=== PATIENT | female | born 1955 | race Caucasian/White ===

== ENCOUNTER 2020-06-29 11:37 | Outpatient (REF) | payer OTHER, SELFPAY ==
--- NOTE | ~2020-06-29 | MM_ITS ---
EXAMINATION: MM SCREENING DIGITAL BREAST TOMOSYNTHESIS, BILATERAL CLINICAL INFORMATION: Screening. Asymptomatic. The lifetime risk of breast cancer based on the Tyrer-Cuzick Model is 10%. COMPARISON: Mammography: 06/04/2019, 05/02/2018 TECHNIQUE: Digital breast tomosynthesis is performed in both the craniocaudal and mediolateral oblique views along with computer-aided detection (CAD). Synthesized 2D images are generated from the tomosynthesis. FINDINGS: There are scattered areas of fibroglandular density (ACR BI-RADS breast composition Category b). There are no significant masses, abnormal calcifications, or other abnormalities. Parenchymal pattern is similar to prior studies. The axilla and skin contours are unremarkable. MM/MM tomosynthesis screening BI IMPRESSION: No mammographic evidence of malignancy. ASSESSMENT: BI-RADS 1: Negative RECOMMENDATION: Routine annual mammography screening. This patient's information was entered into a reminder system with a target due date for their next mammogram.
== END 2020-06-29 11:38 | disposition home or self-care (01) ==
LOC: HO.MAMMO 11:37
PROVIDERS: PCP Internal Medicine; Visit Provider Internal Medicine
DX: Z12.31 Encounter for screening mammogram for malignant neoplasm of breast (principal)
CPT/HCPCS: 77063; 77067

== ENCOUNTER 2021-07-25 10:43 | Outpatient (REF) | payer OTHER, SELFPAY ==
--- NOTE | ~2021-07-25 | MM_ITS ---
EXAMINATION: MM SCREENING DIGITAL BREAST TOMOSYNTHESIS, BILATERAL CLINICAL INFORMATION: Screening. Asymptomatic. The lifetime risk of breast cancer based on the Tyrer-Cuzick Model is 7%. COMPARISON: Mammography: 06/29/2020, 06/04/2019, 05/02/2018 TECHNIQUE: Digital breast tomosynthesis is performed in both the craniocaudal and mediolateral oblique views along with computer-aided detection (CAD). Synthesized 2D images are generated from the tomosynthesis. Additional bilateral MLO views are provided. FINDINGS: There are scattered areas of fibroglandular density (ACR BI-RADS breast composition Category b). There are no significant masses, abnormal calcifications, or other abnormalities. Parenchymal pattern is similar to prior studies. There is no developing density or architectural abnormality. The axilla and skin contours are unremarkable. No significant changes. MM/MM tomosynthesis screening BI IMPRESSION: No mammographic evidence of malignancy. ASSESSMENT: BI-RADS 1: Negative RECOMMENDATION: Routine annual mammography screening. This patient's information was entered into a reminder system with a target due date for their next mammogram.
== END 2021-07-25 10:44 | disposition home or self-care (01) ==
LOC: HO.MAMMO 10:43
PROVIDERS: Visit Provider Internal Medicine
DX: Z12.31 Encounter for screening mammogram for malignant neoplasm of breast (principal)
CPT/HCPCS: 77063; 77067

== ENCOUNTER 2023-08-15 11:54 | Day surgery (SDC) | payer MEDICARE, SELFPAY ==
[2023-08-13 14:48] VITALS: BMI 33.0
--- NOTE | 2023-08-14 11:39 | HO.ANESPROP2 ---
Documented by User: Oneida Martinez NP 08/14/23 11:39 HPI - Anesthesia Eval Consult details Narrative: 67yo F for Upper Endoscopy and Colonoscopy [facility] Past Medical History Medical History (Updated 08/14/23 @ 11:25 by Cherie Mart RN) GERD (gastroesophageal reflux disease) Seasonal allergies Thyroid disease Sleep apnea HTN (hypertension) Surgical History Surgical History (Updated 08/14/23 @ 11:26 by Cherie Mart, RN) Hx of breast biopsy History of removal of ovarian cyst Hx of cholecystectomy H/O colonoscopy History of esophagogastroduodenoscopy (EGD) Social History Social History Advance Directives: No Advance Directives Information Provided: Yes Meds Allergies Allergy/AdvReac Type Severity Reaction Status Date / Time No Known Allergies Allergy Verified 08/15/23 12:28 [No Known Allergies*] Home Medications Medication Instructions Recorded Confirmed Last Taken Type Motrin 08/13/23 Unknown History escitalopram oxalate 10 mg tablet 10 mg PO DAILY 08/13/23 08/15/23 Unknown History hydrochlorothiazide 25 mg tablet 25 mg PO DAILY 08/13/23 08/15/23 Unknown History levothyroxine 88 mcg tablet 88 mcg PO DAILY 08/13/23 08/15/23 Unknown History metoprolol tartrate 25 mg tablet 25 mg PO BID 08/13/23 08/15/23 08/15/23 08:00 History omeprazole 20 mg tablet,delayed 20 mg PO DAILY 08/13/23 08/15/23 Unknown History release Exam Height,Weight and Vital Signs: Height 5 ft Weight 76.657 kg Assessment and Plan Assessment Anesthesia Assessment: Chart Reviewed Documented by User: Pavel Yadav MD 08/15/23 12:52 [facility] Past Medical History Medical History (Updated 08/14/23 @ 11:25 by Cherie Mart RN) GERD (gastroesophageal reflux disease) Seasonal allergies Thyroid disease Sleep apnea HTN (hypertension) Family History Family history of problems with anesthesia: No Surgical History Surgical History (Updated 08/14/23 @ 11:26 by Cherie Mart RN) Hx of breast biopsy History of removal of ovarian cyst Hx of cholecystectomy H/O colonoscopy History of esophagogastroduodenoscopy (EGD) History of Problems with Anesthesia: No Social History Social History Advance Directives: No Advance Directives Information Provided: Yes Meds Allergies Allergy/AdvReac Type Severity Reaction Status Date / Time No Known Allergies Allergy Verified 08/15/23 12:28 [No Known Allergies*] Home Medications Medication Instructions Recorded Confirmed Last Taken Type Motrin 08/13/23 Unknown History escitalopram oxalate 10 mg tablet 10 mg PO DAILY 08/13/23 08/15/23 Unknown History hydrochlorothiazide 25 mg tablet 25 mg PO DAILY 08/13/23 08/15/23 Unknown History levothyroxine 88 mcg tablet 88 mcg PO DAILY 08/13/23 08/15/23 Unknown History metoprolol tartrate 25 mg tablet 25 mg PO BID 08/13/23 08/15/23 08/15/23 08:00 History omeprazole 20 mg tablet,delayed 20 mg PO DAILY 08/13/23 08/15/23 Unknown History release Exam Airway Mallampati Class: II TM Dist: <=3cm Neck ROM: Full Loose/Missing/Broken Teeth: Yes (30) Heart: rrr Lungs: cta Assessment and Plan Final Anesthetic Review Family History of Problems with Anesthesia: No History of Problems with Anesthesia: No ASA Class: III Final Preanesthetic Review: No Changes in Pt Med Stat, Meds/Allgs Chart Reviewed, Consent Obtained/Reviewed and Anes Risks/Benef Reviewed Patient Risk: Intermediate Procedure Risk: Intermediate Anesthetic Plan Anesthetic Plan: MAC: Disposition: Standard PACU
[2023-08-15 12:51] VITALS: BMI 32.4
[2023-08-15 12:56] VITALS: BP 150/71; PULSE 58; RESP 16; TEMP 36.9; O2SAT 97
--- NOTE | 2023-08-15 13:05 | P.HPSUR_ITS ---
Pre-Procedural Eval Section A - 24 Hr Update-Section A only Date of Service: 08/15/23 Section B - Complete if H&P > 30 days Chief Complaint: Epigastric pain,screening Details of Present Illness: see H&P no changes Relevant Family History (Specify if Yes): No Relevant Social History: None Present Medications: see Short Stay Collaborative assessment Medical History: No relevant PMH History of Previous Operations: No relevant previous surgery Allergies: Allergies Allergy/AdvReac Type Severity Reaction Status Date / Time No Known Allergies Allergy Verified 08/15/23 12:28 [No Known Allergies*] Review of Systems Sugical H&P ROS: Negative: Constitution, Cardiovascular, Respiratory, Neurological, Psychiatric, Hem-Onc, Allergic/Immunologic, Gastrointestinal, Genitourinary, Musculoskeletal, Integumentary, Endocrine and Eyes/Ear s/Nose/Throat Exam Surgical H&P Exam: Normal: HEENT, Normal: Heart, Normal: Lungs, Normal: Extremities, Normal: Abdomen, Normal: Skin and Normal: Neurological Plan Diagnosis/Plan: Unchanged I have reviewed the history and physical and performed a pertinent physical examination on my patient. No changes have occurred unless specified. Time Spent With Patient Time: Total time managing care of this patient today ____ minutes.
[2023-08-15] MEDS: Lactated Ringers 1,000 ML 100 ML IVCONT (13:06)
[2023-08-15 13:47] VITALS: BP 105/54; PULSE 56; RESP 16; TEMP 36.2; O2SAT 96
[2023-08-15 14:02] VITALS: BP 129/77; PULSE 62; RESP 14; O2SAT 97
[2023-08-15 14:17] VITALS: BP 142/54; PULSE 60; RESP 15; TEMP 36.2; O2SAT 98
--- NOTE | 2023-08-15 23:23 | OP_ITS ---
DATE OF SERVICE: 08/15/2023 SURGEON: Mathtias Medellin MD INDICATIONS: Epigastric pain, colon cancer screening, and gastroesophageal reflux disease. PREOPERATIVE DIAGNOSIS: POSTOPERATIVE DIAGNOSIS: PROCEDURE PERFORMED: ESTIMATED BLOOD LOSS: COMPLICATIONS: ANESTHESIA: Monitored anesthesia care. ASSISTANTS: SPECIMENS: PROCEDURES PERFORMED: Upper endoscopy with biopsy, colonoscopy to the terminal ileum. DESCRIPTION OF PROCEDURE: History and physical performed. The risks and benefits of the procedure explained to the patient. Informed consent was obtained. The patient was placed in the left lateral decubitus position. The Olympus video gastroscope was introduced into the esophagus, stomach, and duodenum. Examination was performed. The scope was removed. She was repositioned for colonoscopy. Digital rectal exam was performed and was found to be normal. The Olympus pediatric video colonoscope was introduced into the rectum and advanced to the cecum. The cecum was identified by transillumination, palpation, and identification of ileocecal valve. Examination was performed. The scope was removed. She tolerated the procedure well and was returned to Recovery in stable condition. FINDINGS: 1. Upper endoscopy: a. Esophagus: The esophagus showed no esophagitis. There was an irregular EG junction, which was biopsied. There was a small sliding hiatal hernia. b. Stomach: The stomach showed linear streaks of erythema in the body consistent with gastritis. Biopsies were obtained from the antrum. There was a small less than 5 mm polyp on the posterior wall in the body, which was biopsied. c. Duodenum: The bulb and 2nd portion were normal. 2. Colonoscopy: The terminal ileum was examined and appeared normal. The visualized colonic mucosa was normal. The quality of prep was good. No polyps were identified. Retroflexed examination was normal. Small internal hemorrhoids were noted. There were external hemorrhoids noted on withdrawal of the colonoscope. IMPRESSION: 1. Gastritis. 2. Normal colonoscopy. RECOMMENDATIONS: 1. Follow up the biopsy results. 2. Repeat colonoscopy is recommended in 5 years due to family history of colon cancer. MD MELLISSA Chamberlain/LESIA / [phone]
== END 2023-08-15 14:37 | disposition home or self-care (01) ==
PROVIDERS: PCP Internal Medicine; Visit Provider Internal Medicine Gastroenterology
PROC: (CPT 43239; principal; 2023-08-15 13:00)
DX: Z12.11 Encounter for screening for malignant neoplasm of colon (principal); K64.8 Other hemorrhoids; Z86.010 Personal history of colon polyps; K29.70 Gastritis, unspecified, without bleeding; K44.9 Diaphragmatic hernia without obstruction or gangrene; K21.9 Gastro-esophageal reflux disease without esophagitis; I10 Essential (primary) hypertension; G47.33 Obstructive sleep apnea (adult) (pediatric); Z79.899 Other long term (current) drug therapy
CPT/HCPCS: 43239; G0105; 88305; 88313; 88342; J2704

== ENCOUNTER 2024-12-31 12:20 | Outpatient (REF) | payer MEDICARE, SELFPAY ==
--- NOTE | ~2024-12-31 | MM_ITS ---
EXAMINATION: MM SCREENING DIGITAL BREAST TOMOSYNTHESIS, BILATERAL CLINICAL INFORMATION: Screening. Asymptomatic. COMPARISON: Mammography: Comparison is made with available priors TECHNIQUE: Digital breast mammography with tomosynthesis is performed in both the craniocaudal and mediolateral oblique views along with computer-aided detection (CAD). FINDINGS: There are scattered areas of fibroglandular density (ACR BI-RADS breast composition Category b). There are no significant masses, abnormal calcifications, or other abnormalities. MM/MM tomosynthesis screening BI IMPRESSION: No mammographic evidence of malignancy. ASSESSMENT: BI-RADS BI-RADS 1 - Negative RECOMMENDATION: Routine annual mammography screening. 1 year F/U This examination should not preclude the clinical evaluation of a suspicious palpable abnormality. This patient's information was entered into a reminder system with a target due date for their next mammogram. Electronically signed by: Zee Chung DO 01/01/2025 05:01 PM EDT
--- OUTSIDE RECORDS SUMMARY | 2024-12-31 13:17 | XMS_ITS | Patient Health Record ---
Author Organization [facility] Address [address] [place] [address] Care Team Providers Care Judicial Reporter Name Role Phone All Chacon MD Primary Care Provider Matthias Granado Jr Unavailable Allergies No Known Allergies Reason For Referral No Information Medications Medication SIG (Take, Route, Frequency, Duration) Notes Start Date End Date Status Metoprolol Tartrate 25 MG 1 tablet with food Orally Twice a day Active Escitalopram Oxalate 10 MG TAKE 1 TABLET BY MOUTH EVERY DAY Oral for 90 Active Motrin as needed Active Omeprazole 20 MG 1 capsule 30 minutes before morning meal Orally Once a day Active hydroCHLOROthiazide 25 MG 1 tablet in th e morning Orally Once a day Active Levothyroxine Sodium 88 MCG 1 tablet on an empty stomach in the morning Orally Once a day Active Omeprazole 40 MG TAKE 1 CAPSULE BY [facility] EVERY DAY 30 MINUTES BEFORE MORNING MEAL FOR 30 DAYS for 90 Active Immunizations Vaccine Route Administration Date Status Comme nts Influenza Unknown 02/11/2018 Administered Social History Tobacco Use: Social History Observation Description Date Details (start date - stop date) Never Smoker NA - NA Tobacco Use/Smoking Question Answer Notes Patient is a nonsmoker Alcohol Screen Question Answer Notes Did you have a drink contain ing alcohol in the past year? Yes How often did you have a dri nk containing alcohol in the past year? Never (0 point) How many drinks did you have on a typical day when you were drinking in the past year? 1 or 2 drinks (0 point) How often did you have 6 or more drinks on one occasion in the past year? Never (0 point) Points 0 Interpretation Negative Problems Problem Type SNOMED Code ICD Code Onset Dates Problem Status W/U Status Risk Notes Problem 966311845 Colon cancer screening (Z12.11) Active confirmed Problem 36624775 Epigastric pain (R10.13) Active confirmed Problem 025650729 Gastroesophageal reflux disease without esophagitis (K21.9) Active confirmed Problem Gastritis (2972550) Gastritis (K29.70) Active confirmed Problem Esophageal reflux finding (050653978) Gastroesophageal reflux (K21.9) Active confirmed Plan Of Treatment Pending Test Test Name Order Date UPPER GI ENDOSCOPY, BIOPSY 01/20/2011 COLONOSCOPY 01/20/2011 Future Test Test Name Order Date UPPER GI ENDOSCOPY 03/28/2018 COLONOSCOPY 03/28/2018 UPPER GI ENDOSCOPY 06/21/2023 COLONOSCOPY 06/21/2023 Insurance Providers Payer Name Payer Address Payer Phone Subscriber Number Group Number Insured Name Patient Relationship to Insured Coverage Start Date Coverage End Date [facility] [address] [address] [place] [address] [id number] [employer] Self - patient is the insured MEDICARE OF [place] [address] [place] [address] [id number] [employer] Self - patient is the insured Medical (General) History Medical History History ICD Code seasonal allergies bronchitis hypertension obstructive sleep apnea hypothyroidism Colonoscopy in 04/30, tubular adenoma, f warner-year followup Gastroesophageal reflux dise ase, EGD 04/30, no H. pylori or Espino's esophagus. Surgical History Surgery Date(Month/Year) cholecystectomy ovarian cyst breast biopsy
--- OUTSIDE RECORDS SUMMARY | 2024-12-31 13:17 | XMS_ITS | Clinical Summary ---
Author Organization [facility] Address [address] [place] [address] Care Team Providers Care Gang Worker Name Role Phone SreedharSloane DO Primary Care Provider [phone] Allergies No known active allergies Medications Medication Sig Dispensed Refills Start Date End Date Status cyclobenzaprine (FLEXERIL) 10 MG tablet Take 10 mg by mouth 3 (three) times a day as needed. 0 11/26/2017 Active metoprolol tartrate (LOPRESSOR) 25 MG tablet 0 11/23/2017 Active Active Problems Problem Noted Date Diagnosed Date Mixed hypercholesterolemia and hypertriglyceride cailin 01/17/2018 Postmenopausal Osteopenia Hypothyroidism GERD (gastroesophageal reflux disease) Benign essential HTN Family History Medical History Relation Name Comments Colon cancer Father Hypertension Father Hypertension Mother Relation Name Status Comments Father Maternal Grandfather Maternal Grandmother Mother Paternal Grandfather Paternal Grandmother Social History Tobacco Use Types Packs/Day Years Used Date Smoking Tobacco: Never Smokeless Tobacco: Never Alcohol Use Standard Drinks/Week Comments Yes 0 (1 standard drink = 0.6 oz pur e alcohol) rare Sex and Gender Information Value Date Recorded Sex Assigned at Not on file Gender Identity Not on file Sexual Orientation Not on file Last Filed Vital Signs Vital Sign Reading Time Taken Comments Blood Pressure 128/74 01/17/2018 4:25 PM EDT Pulse 64 01/17/2018 4:25 PM EDT Temperature 37.2 C (98.9 F) 01/17/2018 4:25 PM EDT Respiratory Rate - - Oxygen Saturation 98% 01/17/2018 4:25 PM EDT Inhaled Oxygen Concentration - - Weight 77.6 kg (171 lb) 01/17/2018 4:25 PM EDT Height 148.6 cm (4' 10.5 ) 01/17/2018 4:25 PM ED T Body Mass Index 35.13 01/17/2018 4:25 PM EDT Plan of Treatment Health Maintenance Due Date Last Done Comments Hepatitis C Screening 1955 COVID-19 Vaccine (#1) 02[birth year]28/1956 Preventative Health Evaluation 1974 Shingrix-Zoster Vaccine (1 o f 2) 2006 Breast Cancer Screening (Mammogram) 12/12/2018 12/12/2016 Depression Screening 01/17/2019 01/17/2018 Fall Risk Assessment 2021 Osteoporosis Screening (DEXA Scan) 2021 Pneumococcal Vaccine (1 of 1 - PCV) 2021 DTap / Tdap / Td (2 - Td or Tdap) 06/14/2023 06/14/2013 Influenza Vaccine (#1) 2025 Colon Cancer Screening (Colonoscopy) 04/26/2028 04/26/2018, 06/14/2010 RSV Adult > 60+ Yrs or (1 - 1-dose 75+ series) 08/30/2031 Hepatitis B Vaccines Aged Out No long er eligible based on patient's age to complete this topic RSV Ped < 20 months Aged Out No longe r eligible based on patient's age to complete this topic Care Teams Gang Worker Relationship Specialty Start Date End Date Sloane Eli DO PCP - General Family Medicine 12/06/17
--- OUTSIDE RECORDS SUMMARY | 2024-12-31 13:17 | XMS_ITS | Clinical Summary ---
Author Organization [facility] Address [address] [place] [address] Phone Care Team Providers Care Importer Or Exporter Name Role Phone All Chacon MD Primary Care Provider [phone] Allergies No known active allergies Medications omeprazole (PRILOSEC) 40 MG capsule Take 40 mg by mouth daily. Active fluticasone propionate (FLONASE) 50 mcg/actuation nasal spray 2 sprays by Nasal route daily as needed. 0 9 Active cholecalciferol (VITAMIN D3) 25 MCG (1,000 unit) tablet Take 1,000 Units by mouth daily. Active naproxen sodium (ALEVE) 220 MG tablet Take 440 mg by mouth daily as needed for pain (specific location in comments). Alternating with Motrin PRN Active ibuprofen (ADVIL,MOTRIN) 200 MG tablet Take 400 mg by mouth as needed for pain (specific location in comments). Alternating with Aleve PRN Active triamcinolone acetonide 0.1 % creamIndications :Rash and other nonspecific skin eruption Apply topically 2 (two) times a day. 30 g 4 Active metoprolol tartrate (LOPRESSOR) 25 MG tabletIndication s:Essential hypertension TAKE 1 TABLET BY MOUTH TWICE A DAY 180 tablet 3 4 Active hydroCHLOROthiaz tenzin 25 MG tabletIndication s:Essential hypertension TAKE 1 TABLET BY MOUTH EVERY DAY 90 tablet 3 4 Active levothyroxine (SYNTHROID, LEVOTHROID) 125 MCG tabletIndication s:Hypothyroidism , unspecified type TAKE 1 TABLET BY MOUTH EVERY DAY IN THE MORNING 90 tablet 3 4 Active escitalopram oxalate (LEXAPRO) 10 MG tabletIndication s:Other depression TAKE 1 TABLET BY MOUTH EVERY DAY 90 tablet 3 5 Active Encounters Date Type Department Care Team Description 11/01/2024 Refill Daysi [facility] Internal [facility] [address] [place] [address] All Chacon MD Medication Refill from Last 3 Months Immunizations Immunization Administration Dates Next Due COVID-19 (Pre-03/05) Pfizer Vaccine, mRNA, PF Influenza Quadrivalent Adjuvanted Preservative F ree IM 03/04/2023 Influenza Quadrivalent Preservative Free IM 02/11,03/01/2018 Pneumococcal conjugate PCV20 06/23/2022 RSV Vaccine (monovalent, adjuvanted) 01/24/2024 Tdap 05/10/2018 Zoster recombinant 09/01/2023,03/15/2023 Family History Medical History Relation Comments Colon cancer Father Relation Status Comments Father (Age 78) Mother Alive Social History Tobacco Use Types Packs/Day Years Used Date Smoking Tobacco: Never Smokeless Tobacco: Never Alcohol Use Standard Drinks/Week Comments Yes 0 (1 standard drink = 0.6 oz pure alcohol) during summer a couple mixed drinks or wine a week, sociall Child or Family Care Answer Date Record ed Do you have problems with on e of the following making it difficult for you to work, study, or receive health care? No 06/23/2022 Education Answer Date Recorded Are you interested in more education? Not on katlin e 06/26/2024 Are you concerned about learning? Not on file 06/26/2024 No 06/26/2024 No 06/26/2024 Food Answer Date Recorded Within the past 6 months we worried whether our food would run out before we got money to buy more. Never True 06/23/2022 Within the past 6 months the food we bought just didn't last and we didn't have enough money to get more. Never True Residential Stability Answer Date Recor ded What is your housing situation today? I have lou sing 06/23/2022 How many times have you moved in the past 12 mon ths? One time 06/23/2022 Paying for Meds Answer Date Recorded Do you have trouble paying for medicines? No 06/23/2022 Paying Utility Bills Answer Date Record ed Do you have trouble paying your heating or elect ricity bill? No 06/23/2022 Transportation Answer Date Recorded Has the lack of transportati on kept you from medical appointments or from getting medications? No 06/23/2022 Unemployment Answer Date Recorded Are you currently unemployed or working on a part-time or temporary basis, and looking for work? No 06/23/2022 Digital Access Answer Date Recorded No 10/06/2022 No 10/06/2022 Reliable internet access at home? Not on file 10/06/2022 Device with a working camera? Not on file Intimate Partner Violence Answer Date R ecorded Denied Basic Needs Not on file 12/25/2023 In the past 12 months have y ou been in a relationship with a person who hurts, threatens, or tries to control you? No 12/25/2023 Worried food would run out Not on file 12/24 In the past 12 months have y ou been in a relationship with a person who hurts, threatens, or tries to control you? No 12/25/2023 Comments No Sex and Gender Information Value Date Recorded Sex Assigned at Not on file Legal Sex Female 12:10 PM EST Gender Identity Not on file Sexual Orientation Not on file Last Filed Vital Signs Vital Sign Reading Time Taken Comments Blood Pressure 130/68 12/25/2023 3:41 PM EDT Pulse 58 12/25/2023 3:41 PM EDT Temperature 36.7 C (98.1 F) 12/25/2023 3:41 PM EDT Respiratory Rate 16 12/25/2023 3:41 PM EDT Oxygen Saturation 98% 12/25/2023 3:41 PM EDT Inhaled Oxygen Concentration - - Weight 78.8 kg (173 lb 12.8 oz) 12/25/2023 3:41 PM EDT Height 149.4 cm (4' 10.82 ) 12/25/2023 3:41 PM E DT Body Mass Index 35.32 12/25/2023 3:41 PM EDT Plan of Treatment Upcoming Encounters Date Type Department Care Team (Late st Contact Info) Description 01/16/2025 3:30 PM EDT Office Visit [facility] Internal Medicine [address] [place] [address] All Chacon MD [address] [place] [address] Health Maintenance Due Date Last Done Comments COLOGUARD 2001 FIT TEST 2001 FOBT 2001 SIGMOIDOSCOPY 2001 VIRTUAL COLONOSCOPY 2001 COVID-19 VACCINE ( season) 2024 06/14/2021, 08/25/2020 BLOOD PRESSURE 06/26/2024 12/25/2023 DEPRESSION SCREENING 12/24/2024 12/25/2023 POTASSIUM LEVEL 02/17/2025 02/18/2024, 01/12, 06/16/2022, Additional history exists TSH LEVEL 02/17/2025 02/18/2024, 02/0 07/2022, 11/17/2020, Additional history exists MAMMOGRAM 12/24/2025 12/25/2023, 06/14, 07/25/2021, Additional history exists SCREENING FOR DIABETES 02/17/2027 02/18/2024, 2023 COLONOSCOPY 04/26/2028 04/26/2018, 04/26/2018 COLORECTAL CANCER SCREENING 04/26/2028 Adult Td,Tdap Booster 05/10/2028 05/10/2018 LIPID PANEL 02/17/2029 02/18/2024, 02/0 07/2022, 11/17/2020, Additional history exists HEPATITIS C SCREENING Completed 05/18/2009 PNEUMOCOCCAL VACCINES (50+ years) Completed 06/23/2022 ZOSTER VACCINES Completed 09/01/2023, 03/15/2023 OSTEOPOROSIS SCREENING INITIAL (ONE-TIME) Completed 12/25/2023, 12/28/2016 SMOKING STATUS SCREENING (Once After 26 Yrs) Completed 12/25/2023 RSV VACCINE Completed 01/24/2024 HEPATITIS A VACCINES Aged Out No long er eligible based on patient's age to complete this topic HIB VACCINES Aged Out No longer eligi ble based on patient's age to complete this topic MENINGOCOCCAL VACCINES (ACWY) Aged Out No longer eligible based on patient's age to complete this topic MENINGOCOCCAL VACCINES (B) Aged Out N o longer eligible based on patient's age to complete this topic Medical Devices Not on file Procedures Procedure Name Priority Date/Time Associated Diagnosis Comments LIPID PANEL Routine 02/18/2024 10:19 AM EDT Essential hypertension TSH WITH REFLEX Routine 02/18/2024 10:19 AM EDT Hypothyroidism, unspecified type COMPREHENSIVE METABOLIC PANEL Routine 02/18/2024 10:19 AM EDT Hypothyroidism, unspecified type Essential hypertension Impaired fasting glucose BD DXA SCREENING Routine 12/25/2023 4:2 0 PM EDT Postmenopausal estrogen deficiency BI MAMMOGRAM SCREENING (BILATERAL) Routine 12/25/2023 4:18 PM EDT Screening mammogram, encounter for HM COLONOSCOPY FOR RESULT ENTRY ONLY Routine 04/26/2018 OUTSIDE HEPATITIS C VIRUS SCREENING Routine 05/18/2009 from Last 3 Months or Most Recently Relevant to Health Maintenance Results * (ABNORMAL) Comprehensive metabolic panel (02/18/2024 10:19 AM EDT) SODIUM 140 133 - 146 mmol/L [facility] POTASSIUM 3.8 3.3 - 5.1 mmol/L [facility] CHLORIDE 101 96 - 108 mmol/L [facility] CO2 30 21 - 35 mmol/L [facility] BUN 25(H) 6 - 19 mg/dL [facility] CREATININE 0.70 0.5 - 1.5 mg/dL [facility] GLUCOSE 105(H) 70 - 99 mg/dL [facility] ALBUMIN 4.1 3.9 - 4.8 g/dL [facility] TOTAL PROTEIN 7.7 6.5 - 8.0 g/dL [facility] CALCIUM 9.4 8.4 - 10.3 mg/dL [facility] ALKALINE PHOSPHATASE 74 39 - 117 U/L [facility] TOTAL BILIRUBIN 0.3 0.0 - 1.2 mg/dL [facility] AST 22 0 - 37 U/L [facility] ALT 15 0 - 40 U/L [facility] GLOBULIN 3.6 1 - 4.8 g/dL [facility] EGFR 95 >59 mL/min/1.7 3m2 [facility] Comment:Estimated glomerular filtration rate calculated using the CKD-EPI refit equation. ANION GAP 13 10 - 20 mmol/L [facility] Blood 02/18/2024 10:1 9 AM EDT 02/18/2024 10:25 AM EDT All Chacon MD LAB BLOOD ORDERABLES Final Re sult Performing Organization Address City/[facility]/ZIP Co de Phone Number [address] [address] * TSH with reflex (02/18/2024 10:19 AM EDT) TSH 0.44 0.27 - 4.20 uIU/mL [facility] Blood 02/18/2024 10:1 9 AM EDT 02/18/2024 10:25 AM EDT All Chacon MD LAB BLOOD ORDERABLES Final Re sult Performing Organization Address [facility] Co de Phone Number [address] [address] * (ABNORMAL) Lipid panel (02/18/2024 10:19 AM EDT) HDL 37 mg/dL [facility] Comment: Interpretation <40 mg/dL: Low HDL cholesterol (major risk factor for CHD) Greater than or equal to 60 mg/dL: High HDL cholesterol ( negative risk factor for CHD) HDL - cholesterol is affected by a number of factors, e.g. smoking, excerise, hormones, sex and age. CHOLESTEROL 254(H) 0 - 240 mg/dL [facility] TRIGLYCERIDES 347(H) 30 - 160 mg/dL [facility] LDL 148(H) 50 - 129 mg/dL [facility] Comment: LDL levels in terms of risk for coronary heart disease: <100 mg/dL: Optimal 100-129 mg/dL: Near or above optimal 130-159 mg/dL: Borderline high 160-189 mg/dL: High >190 mg/dL: Very High CARDIAC RISK RATIO 6.9(H) 3.3 - 4.4 [facility] Blood 02/18/2024 10:1 9 AM EDT 02/18/2024 10:25 AM EDT All Chacon MD LAB BLOOD ORDERABLES Final Re sult [facility] [address], [place] [id number] * MAMMOGRAPHY FOR RESULT ENTRY ONLY (07/25/2021) Result [facility] Historical Provider HEALTH MAINTENANCE Edited Result - Final * COLONOSCOPY FOR RESULT ENTRY ONLY (04/26/2018) Colonoscopy tubular adenoma documented in [facility] Historical Provider HEALTH MAINTENANCE Final Result * OUTSIDE BONE DENSITY SCREENING (12/28/2016) BONE DENSITY SCREENING - EXTERNAL osteopenia Historical Provider HEALTH MAINTENANCE Final Result * Outside Hepatitis C Virus Screening (05/18/2009) Hepatitis C Screening - External Neg Historical Provider LAB BLOOD ORDERABLES Viri l Result from Last 3 Months or Most Recently Relevant to Health Maintenance Insurance [facility] MEDICARE REPLACEMENT MEDICARE REPLACEMENT [facility] MEDICARE REPLACEMENT [address] [address] [place] [address] MEDICARE REPLACEMENT Member Subscriber Plan / Payer ( fective 2022-Present) Name:Dinah Plata Relation to Subscriber:Self Name:Dinah Plata Payer ID:[id number] (NAIC) Type:Medicare Address: [address] [phone] Care Teams Importer Or Exporter Relationship Specialty Start Date End Date All Chacon MD [address] [place] [phone] [email or web address] PCP - General Internal Medicine 10/25/18 Additional Source Comments The information contained in this document represents components of the legal health record. It is not the complete legal health record.[facility]
--- OUTSIDE RECORDS SUMMARY | 2024-12-31 13:18 | XMS_ITS | Patient Health Record ---
Author Organization [facility] Address [address] [place] [address] Care Team Providers Care Open Soaper Tender Name Role Phone Sloane Eli DO Primary Care Provider Gerri Talavera Unavailable [phone] Reason For Referral No Information Medications Medication SIG (Take, Route, Frequency, Duration) Notes Start Date End Date Status AFO-fixed Not-Taking Work Note . . . Had apponitment 11/27, off of work 11/28 due to foot pain Active Levothyroxine Sodium Active Metoprolol Tartrate Active Pantoprazole Sodium Not-Taking Work Note . . . Patient out of w ork until 12/10/2017 11/30/2017 Active Omeprazole Active FLUoxetine HCl Not-T aking hydroCHLOROthiazide Not-Taking Social History Tobacco Use: Social History Observation Description Date Details (start date - stop date) Never Smoker NA - NA Tobacco Use/Smoking Question Answer Notes Are you a: nonsmoker Additional Findings: Tobacco Non-User Current no n-smoker Alcohol Screen Question Answer Notes Did you have a drink containing alcohol in the p ast year? Yes Points 0 Interpretation Negative Tobacco use other than smoking: Question Answer Notes Are you an other tobacco user? No Problems No Known Problems Plan Of Treatment Pending Test Test Name Order Date X ray : Foot, right 3V 11/27/2017 [id number], [id number]- INJECT or DRAIN, JOINT/BUR SA 11/27/2017 X ray : Ankle, right 3V 11/27/2017 Insurance Providers Payer Name Payer Address Payer Phone Subscriber Number Group Number Insured Name Patient Relationship to Insured Coverage Start Date Coverage End Date [facility] [address] [address] [place] [address] [id number] Dinah Plata Self - patient is the insured Medical (General) History Medical History History ICD Code back, hip, knee pain depression hypertension chronic sinusitis thyroid disorder Anxiety Gall bladder problems Headaches/Migraines High blood pressure Reflux ( GERD) Thyroid disorder Measles Mumps Chicken pox Transfusions Surgical History Surgery Date(Month/Year) tubal ligation 2002 breast biopsy 1990 ovarian cyst resection 1974 gall bladder 2010 Transfusions 1977
== END 2024-12-31 12:21 | disposition home or self-care (01) ==
LOC: HO.MAMMO 12:20
PROVIDERS: PCP Internal Medicine; Visit Provider Internal Medicine
DX: Z12.31 Encounter for screening mammogram for malignant neoplasm of breast (principal)
CPT/HCPCS: 77063; 77067

== ENCOUNTER → 2024-12-31 12:30 | Outpatient (BNV) | payer MEDICARE, SELFPAY | PROVIDERS: PCP Internal Medicine; Visit Provider Internal Medicine | DX: Z12.31 Encounter for screening mammogram for malignant neoplasm of breast (principal) | CPT/HCPCS: 77063; 77067 ==

== ENCOUNTER 2025-02-24 13:32 | Outpatient (REF) | payer MEDICARE, SELFPAY ==
--- NOTE | ~2025-02-24 | XR_ITS ---
EXAMINATION: XR HIP, LEFT CLINICAL INFORMATION: PAIN COMPARISON: None available. TECHNIQUE: AP pelvis, and 2 views of the left hip. FINDINGS: There is no fracture, dislocation, or suspicious bone lesion. There is normal alignment. Mild to moderate degenerative changes of both hip joints are present with superolateral acetabular osteophytic lipping. Calcific enthesopathy is noted involving both greater trochanters left greater than right. The sacrum appears intact. The SI joints appear normal. No soft tissue abnormality. XR/XR hip LT w PEL1V IMPRESSION: 1. No acute bony abnormalities of the left hip. 2. Mild to moderate osteoarthrosis of both hip joints. 3. Calcific enthesopathy of both greater trochanters. Electronically signed by: Barber Tesfaye MD 02/24/2025 02:34 PM EDT
--- NOTE | ~2025-02-24 | XR_ITS ---
EXAMINATION: XR RIBS, RIGHT CLINICAL INFORMATION: Right lower rib pain. COMPARISON: Chest radiograph 12/07/2017. TECHNIQUE: PA chest, and 3 views of the right ribs were obtained. FINDINGS: Lungs are clear. No consolidation, pneumothorax, or pleural effusion. The cardiomediastinal silhouette and pulmonary vasculature are normal. Ribs are intact. No fractures are identified. There are degenerative changes throughout the spine. There are cholecystectomy clips present. XR/XR ribs RT min 3V w CXR1V IMPRESSION: No acute findings of the thorax or right ribs. Electronically signed by: Barber Tesfaye MD 02/24/2025 02:31 PM EDT
--- OUTSIDE RECORDS SUMMARY | 2025-02-24 16:28 | XMS_ITS | Clinical Summary ---
Author Organization [facility] Address [address] [place] [address] Care Team Providers Care Medical Receptionist Assistant Name Role Phone SreedharSloane DO Primary Care Provider [phone] Allergies No known active allergies Medications Medication [...] age to complete this topic Care Teams Medical Receptionist Assistant Relationship Specialty Start Date End Date Sloane Eli DO PCP - General Family Medicine 12/06/17
--- OUTSIDE RECORDS SUMMARY | 2025-02-24 16:28 | XMS_ITS | Patient Health Record ---
Author Organization [facility] Address [address] [place] [address] Care Team Providers Care Educational Psychology Professor Name Role Phone All Chacon MD Primary Care Provider Matthias Granado Jr Unavailable [phone] Allergies No Known Allergies Reason For Referral No Information Medications Medication SIG (Take, Route, Frequency, Duration) Notes Start Date End Date Status Metoprolol Tartrate 25 MG 1 tablet with food Orally Twice a day Active Escitalopram Oxalate 10 MG TAKE 1 TABLET BY MOUTH EVERY DAY Oral; Duration: 90 Active Motrin as needed Active Omeprazole 20 MG 1 capsule 30 minutes before morning meal Orally Once a day Active hydroCHLOROthiazide 25 MG 1 tablet in th e morning Orally Once a day Active Levothyroxine Sodium 88 MCG 1 tablet on an empty stomach in the morning Orally Once a day Active Omeprazole 40 MG TAKE 1 CAPSULE BY [facility] EVERY DAY 30 MINUTES BEFORE MORNING MEAL FOR 30 DAYS; Duration: 90 Active Immunizations Vaccine Route Administration Date [...] Problem Status W/U Status Risk Notes Problem Colon cancer screening (046441767) Colon cancer screening (Z12.11) Active confirmed Problem Epigastric pain (86776366) Epigastric pain (R10.13) Active confirmed Problem Gastroesophageal reflux disease without esophagitis (288385541) Gastroesophageal reflux disease without esophagitis (K21.9) Active confirmed Problem Gastritis (1018240) Gastritis (K29.70) Active c onfirmed Problem Esophageal reflux finding (828148978) Gastroesophageal reflux (K21.9) Active confirmed Plan Of Treatment Pending Test Test Name Order Date UPPER GI ENDOSCOPY, BIOPSY 01/20/2011 COLONOSCOPY 01/20/2011 Future Test Test Name Order Date UPPER GI ENDOSCOPY 03/28/2018 COLONOSCOPY 03/28/2018 UPPER GI ENDOSCOPY 06/21/2023 COLONOSCOPY 06/21/2023 Insurance Providers Payer Name Payer Address Payer Phone Subscriber Number Group Number Insured Name Patient Relationship to Insured Coverage Start Date Coverage End Date [facility] [address] [address] [place] [address] [id number] INGRID TOMPKINS Self - patient is the insured MEDICARE OF [place] [address] [place] [address] [phone] [id number] INGRID TOMPKINS Self - patient is the insured Medical (General) History Medical History History ICD Code seasonal allergies bronchitis hypertension obstructive sleep apnea hypothyroidism Colonoscopy in 04/30, tubular adenoma, f warner-year followup Gastroesophageal reflux dise ase, EGD 04/30, no H. pylori or Espino's esophagus. Surgical History Surgery Date(Month/Year) cholecystectomy ovarian cyst breast biopsy
--- OUTSIDE RECORDS SUMMARY | 2025-02-24 16:28 | XMS_ITS | Clinical Summary ---
Author Organization [facility] Address [id number] [place] [address] Phone Care Team Providers Care Drug Safety Scientist Name Role Phone All Chacon MD Primary Care Provider [phone] Allergies No known active allergies Medications omeprazole (PRILOSEC) 40 MG capsule Take 40 mg by mouth daily. Active fluticasone propionate (FLONASE) 50 mcg/actuation nasal spray 2 sprays by Nasal route daily as needed. 0 2018 Active cholecalcifero l (VITAMIN D3) 25 MCG (1,000 unit) tablet [...] Aleve PRN Active triamcinolone acetonide 0.1 % creamIndicatio ns:Rash and other nonspecific skin eruption Apply topically 2 (two) times a day. 30 g 2023 Active Additional Information Patient taking differently: 1 ApplicationTopicalAs needed, Reported on 01/16/2025 hydroCHLOROthi azide 25 MG tabletIndicati ons:Essential hypertension TAKE 1 TABLET BY MOUTH EVERY DAY 90 tablet 3 2023 Active levothyroxine (SYNTHROID, LEVOTHROID) 125 MCG tabletIndicati ons:Hypothyroi dism, unspecified type TAKE 1 TABLET BY MOUTH EVERY DAY IN THE MORNING 90 tablet 3 12/20/ 2024 Active escitalopram oxalate (LEXAPRO) 10 MG tabletIndicati ons:Other depression TAKE 1 TABLET BY MOUTH EVERY DAY 90 tablet 3 2024 Active lisinopril (PRINIVIL,ZEST RIL) 5 MG tablet Take 5 mg by mouth daily. Active metoprolol tartrate (LOPRESSOR) 25 MG tabletIndicati ons:Essential hypertension TAKE 1 TABLET BY MOUTH TWICE A DAY 180 tablet 3 2024 Active lisinopril (ZESTRIL) 10 MG tablet Take 1 tablet (10 mg total) by mouth daily. 90 tablet 3 2024 Active metoprolol tartrate (LOPRESSOR) 25 MG tabletIndicati ons:Essential hypertension TAKE 1 TABLET BY MOUTH TWICE A DAY 180 tablet 3 02/03 Discontinued Active Problems Problem Noted Date Diagnosed Date Obesity, Class II, BMI 35-39.9 01/16/2025 Encounters Date Type Department Care Team Description 02/12/2025 Telephone [facility] Internal Medicine [address] [place] [address] All Chacon MD Medication Refill 02/03/2025 Refill [facility] Internal Medicine [address] [place] [address] All Chacon MD Medication Refill 01/16/2025 3:30 PM EDT Office Visit [facility] Internal Medicine [address] [place] [address] All Chacon MD Obesity, Class II, BMI 35-39.9 (Primary Dx); Rib pain on right side; Need for influenza vaccination; Left hip pain; Acute pain of both knees; Depression, unspecified depression type; Benign essential hypertension; Hypothyroidism, unspecified type; Pure hypercholesterolemia ; Vitamin D deficiency; Impaired fasting glucose 01/15/2025 Orders Only [facility] Internal Medicine [address] [place] [address] ProviderNicola MD 01/15/2025 Documentation [facility] Internal Medicine [address] [place] [address] All Chacon MD 01/01/2025 Orders Only [facility] [place] Internal Medicine [address] [place] [address] Provider, MD Nicola from Last 3 Months Immunizations Immunization Administration Dates Next Due COVID-19 (Pre-03/05) Pfizer Vaccine, mRNA, PF Influenza High-Dose Trivalent Preservative Free IM 01/16/2025 Influenza Quadrivalent Adjuvanted Preservative F ree IM [...] Sign Reading Time Taken Comments Blood Pressure 150/84 01/16/2025 4:43 PM EDT Pulse 57 01/16/2025 3:37 PM EDT Temperature 36 C (96.8 F) 01/16/2025 3:37 PM EDT Respiratory Rate 16 12/25/2023 3:41 PM EDT Oxygen Saturation 98% 01/16/2025 3:37 PM EDT Inhaled Oxygen Concentration - - Weight 81.2 kg (179 lb) 01/16/2025 3:37 PM EDT Height 149.4 cm (4' 10.82 ) 01/16/2025 3:37 PM E DT Body Mass Index 36.38 01/16/2025 3:37 PM EDT Plan of Treatment Upcoming Encounters Date Type Department Care Team (Late st Contact Info) Description 06/10/2025 2:30 PM EST Office Visit [facility] Internal Medicine [address] [facility] [address] All Chacon MD [address] [place] [address] Health Maintenance Due Date Last Done Comments COLOGUARD 2001 FIT TEST 2001 FOBT 2001 SIGMOIDOSCOPY 2001 VIRTUAL COLONOSCOPY 2001 COVID-19 VACCINE ( season) 2025 06/14/2021, 08/25/2020 CREATININE LEVEL 02/17/2025 02/18/2024, 04/2023, 06/16/2022, Additional history exists POTASSIUM LEVEL 02/17/2025 02/18/2024, 01/12, 06/16/2022, Additional history exists TSH LEVEL 02/17/2025 02/18/2024, 02/0 07/2022, 11/17/2020, Additional history exists BLOOD PRESSURE 07/16/2025 01/16/2025 DEPRESSION SCREENING 01/16/2026 01/16/2025, 01/17/20 25 MAMMOGRAM 12/31/2026 12/31/2024, 12/13, 12/25/2023, Additional history exists SCREENING FOR DIABETES 02/17/2027 02/18/2024, 2023 Adult Td,Tdap Booster 05/10/2028 05/10/2018 LIPID PANEL 02/17/2029 02/18/2024, 02/0 07/2022, 11/17/2020, Additional history exists COLONOSCOPY 08/14/2033 08/15/2023, 04/13, 04/26/2018 COLORECTAL CANCER SCREENING 08/14/2033 HEPATITIS C SCREENING Completed 05/18/2009 PNEUMOCOCCAL VACCINES (50+ years) Completed 06/23/2022 ZOSTER VACCINES Completed 09/01/2023, 03/15/2023 OSTEOPOROSIS SCREENING INITIAL (ONE-TIME) Completed 12/25/2023, 12/28/2016 RSV VACCINE Completed 01/24/2024 INFLUENZA VACCINE Completed 01/16/2025, , 02/25/2020, Additional history exists SMOKING STATUS SCREENING (Once After 26 Yrs) Completed 01/16/2025 HEPATITIS A VACCINES Aged Out No long [...] Procedure Name Priority Date/Time Associated Diagnosis Comments HM MAMMOGRAPHY Routine 12/31/2024 5:22 PM EDT HM MAMMOGRAPHY Routine 12/31/2024 LIPID PANEL Routine 02/18/2024 10:19 AM EDT Essential hypertension TSH WITH REFLEX Routine 02/18/2024 10:19 AM EDT Hypothyroidism, unspecified type COMPREHENSIVE METABOLIC PANEL Routine 02/18/2024 10:19 AM EDT Hypothyroidism, unspecified type Essential hypertension Impaired fasting glucose BD DXA SCREENING Routine 12/25/2023 4:20 PM EDT Postmenopausal estrogen deficiency HM COLONOSCOPY FOR RESULT ENTRY ONLY Routine 08/15/2023 OUTSIDE HEPATITIS C VIRUS SCREENING Routine 05/18/2009 from Last 3 Months or Most Recently Relevant to Health Maintenance Results * MAMMOGRAPHY FOR RESULT ENTRY ONLY (12/31/2024 5:22 PM EDT) us Historical Provider HEALTH MAINTENANCE Final Result * MAMMOGRAPHY FOR RESULT ENTRY ONLY (12/31/2024) Mammogram BI-RADS 1 Negative us Historical Provider HEALTH MAINTENANCE Final Result * (ABNORMAL) Comprehensive metabolic panel (02/18/2024 10:19 AM EDT) SODIUM 140 133 - 146 mmol/L [facility] POTASSIUM 3.8 3.3 - 5.1 mmol/L [facility] CHLORIDE 101 96 - 108 mmol/L [facility] CO2 30 21 - 35 mmol/L [facility] BUN 25(H) 6 - 19 mg/dL [facility] CREATININE 0.70 0.5 - 1.5 mg/dL [facility] GLUCOSE 105(H) 70 - 99 mg/dL [facility] ALBUMIN 4.1 3.9 - 4.8 g/dL [facility] TOTAL PROTEIN 7.7 6.5 - 8.0 g/dL [facility] CALCIUM 9.4 8.4 - 10.3 mg/dL [facility] ALKALINE PHOSPHATASE 74 39 - 117 U/L [facility] TOTAL BILIRUBIN 0.3 0.0 - 1.2 mg/dL [facility] AST 22 0 - 37 U/L [facility] ALT 15 0 - 40 U/L [facility] GLOBULIN 3.6 1 - 4.8 g/dL [facility] EGFR 95 >59 mL/min/1.7 3m2 [facility] Comment:Estimated glomerular filtration rate calculated using the CKD-EPI refit equation. ANION GAP 13 10 - 20 mmol/L [facility] Blood 02/18/2024 10:1 9 AM EDT 02/18/2024 10:25 AM EDT All Chacon MD LAB BLOOD ORDERABLES Final Re sult Performing Organization Address [facility] Co de Phone Number [address] [address] * TSH with reflex (02/18/2024 10:19 AM EDT) TSH 0.44 0.27 - 4.20 uIU/mL [facility] Blood 02/18/2024 10:1 9 AM EDT 02/18/2024 10:25 AM EDT All Chacon MD LAB BLOOD ORDERABLES Final Re sult Performing Organization Address [facility] Co de Phone Number [address] [address] * (ABNORMAL) Lipid panel (02/18/2024 10:19 AM EDT) Pathologist [facility] HDL 37 mg/dL [facility] Comment: Interpretation <40 mg/dL: Low HDL cholesterol (major risk factor for CHD) Greater than or equal to 60 mg/dL: High HDL cholesterol ( negative risk factor for CHD) HDL - cholesterol is affected by a number of factors, e.g. smoking, excerise, hormones, sex and age. CHOLESTEROL 254(H) 0 - 240 mg/dL [facility] TRIGLYCERIDES 347(H) 30 - 160 mg/dL [facility] LDL 148(H) 50 - 129 mg/dL [facility] Comment: LDL levels in terms of risk for coronary heart disease: <100 mg/dL: Optimal 100-129 mg/dL: Near or above optimal 130-159 mg/dL: Borderline high 160-189 mg/dL: High >190 mg/dL: Very High CARDIAC RISK RATIO 6.9(H) 3.3 - 4.4 C [facility] Blood 02/18/2024 10:1 9 AM EDT 02/18/2024 10:25 AM EDT Result [facility] All Chacon MD LAB BLOOD ORDERABLES Final Re sult Performing Organization Address City/State/[facility] Co de Phone Number [address] [address] * COLONOSCOPY FOR RESULT ENTRY ONLY (08/15/2023) [facility] Colonoscopy 5 year recall Result [facility] Historical Provider HEALTH MAINTENANCE Final Result * OUTSIDE BONE DENSITY SCREENING (12/28/2016) [facility] BONE DENSITY SCREENING - EXTERNAL osteopenia Historical Provider HEALTH MAINTENANCE Final Result * Outside Hepatitis C Virus Screening (05/18/2009) [facility] Hepatitis C Screening - External Neg Result [facility] Historical Provider LAB BLOOD ORDERABLES Viri l Result from Last 3 Months or Most Recently Relevant to Health Maintenance Insurance * Guarantor: Dinah Plata Account Type Relation to Patient Date of Phone Billing Address Personal/Family Self [address] [place] [address] MEDICARE REPLACEMENT * Guarantor: Sherlyn Dinah Account Type Relation to Patient Date of Phone Billing Address Personal/Family Self [address] [place] [address] MEDICARE REPLACEMENT * Guarantor: Dinah Plata Account Type Relation to Patient Date of Phone Billing Address Personal/Family Self [address] [place] [address] MEDICARE REPLACEMENT AARP MEDICARE REPLACEMENT [address] [id number] [address] [id number] [address] [id number] Care Teams Drug Safety Scientist Relationship Specialty Start Date End Date All Chacon MD [address] [place] [id number] [email or web address] PCP - General Internal Medicine 10/25/18 Additional Source Comments The information contained in this document represents components of the legal health record. It is not the complete legal health record.[facility]
--- OUTSIDE RECORDS SUMMARY | 2025-02-24 16:29 | XMS_ITS | Patient Health Record ---
Author Organization [facility] Pankaj montemayor [place] Address [address] [place] [address] Care Team Providers Care Family Practice Physician Name Role Phone Sloane Eli DO Primary Care Provider Gerri Talavera Unavailable [phone] Reason For Referral No Information Medications Medication [...] X ray : Foot, right 3V 11/27/2017 [id number], [id number] INJECT or DRAIN, JOINT/BUR SA 11/27/2017 X ray : Ankle, right 3V 11/27/2017 Insurance Providers Payer Name Payer Address Payer Phone Subscriber Number Group Number Insured Name Patient Relationship to Insured Coverage Start Date Coverage End Date [facility] [address] [address] [place] [address] [id number] Dinah Plata Self - patient is the [...]
== END 2025-02-24 13:33 | disposition home or self-care (01) ==
LOC: HO.XRAY 13:32
PROVIDERS: PCP Internal Medicine; Visit Provider Internal Medicine
DX: R07.81 Pleurodynia (principal); M25.552 Pain in left hip
CPT/HCPCS: 71101; 73502

== ENCOUNTER → 2025-02-24 14:02 | Outpatient (BNV) | payer MEDICARE, SELFPAY | PROVIDERS: PCP Internal Medicine; Visit Provider Radiology Diagnostic Radiology | DX: R07.89 Other chest pain (principal); M16.12 Unilateral primary osteoarthritis, left hip | CPT/HCPCS: 71101; 73502 ==